=== PATIENT | male | born 1965 | race Caucasian/White ===

== ENCOUNTER 2017-08-09 12:14 | Inpatient (IN) ==
[2017-08-09] MEDS ORDERED: DOCUSATE SODIUM 100 MG CAPSULE PO PRN (14:18)
[2017-08-09] MEDS ORDERED: ACETAMINOPHEN 325 MG TABLET PO PRN ×2 (14:18)
[2017-08-09] MEDS ORDERED: guaiFENesin/DM ER 600-30 MG TABLET PO PRN (14:18)
[2017-08-09] MEDS ORDERED: SODIUM CHLORIDE 0.9% 2,000 ML IV ONE (14:18)
[2017-08-09] MEDS ORDERED: ONDANSETRON 4 MG/2 ML VIAL IV PRN (14:18)
[2017-08-09] MEDS ORDERED: diphenhydrAMINE CAP 25 MG CAPSULE PO PRN (14:18)
[2017-08-09] MEDS ORDERED: ALBUTEROL 2.5 MG/3 ML NEB RESP TX PRN (14:22)
[2017-08-09] MEDS ORDERED: CICLESONIDE PO SCH (14:30)
[2017-08-09 15:47] LABS: Thyroid Stimulating Hormone 0.18 uIU/ml (0.358-3.74); VLDL CHOLESTEROL 53.4 MG/DL
[2017-08-09] MEDS: BENZTROPINE 1 MG TABLET PO SCH ×2 (16:32→20:39)
[2017-08-09] MEDS: ENOXAPARIN 30 MG/0.3 ML SYRINGE SUBCUT SCH (16:33)
[2017-08-09] MEDS: PANTOPRAZOLE 40 MG TABLET PO SCH (16:33)
[2017-08-09] MEDS: LITHIUM ER 300 MG TABLET PO SCH (20:40)
[2017-08-09] MEDS: SIMVASTATIN 10 MG TABLET PO SCH (20:40)
[2017-08-09] MEDS: MIRTAZAPINE 15 MG TABLET PO SCH (20:40)
[2017-08-09] MEDS: SODIUM CHLORIDE 0.9% 1,000 ML IV SCH (21:52)
[2017-08-10 02:07] LABS: Apearance,Urine CLEAR (Clear); Bilirubin,Urine Negative (Negative); Blood, Urine Negative (Negative); Glucose,Urine (UA) Negative (Negative); Ketones,Urine 5 mg/dL (Negative); Nitrite,Urine Negative (Negative); Protein,Urine Negative; RBC,Urine <1 /HPF (0-4); Urine Color Straw (Yellow); Urine Specific Gravity 1.004 (1.001-1.035); Urine Urobilinogen < 2.0 EU/DL (0.2-1.0); WBC,Urine 1 /HPF (0-6)
[2017-08-10] MEDS: SODIUM CHLORIDE 0.9% 1,000 ML IV SCH ×4 (05:58→23:28)
[2017-08-10] MEDS: LEVOTHYROXINE 88 MCG TABLET PO SCH (06:03)
[2017-08-10 06:50] LABS: Basophils % 0.3 % (0.0-0.8); Eosinophils # 0.2 10*3/uL (0.0-0.87); Eosinophils % 3.1 % (0.00-10.9); Hematocrit 29.9 VOL% (42.0-52.0); Hemoglobin 10.1 GM/DL (14.0-18.0); Immature Granulocytes % 0.3 %; Immature Granulocytes Absolute 0.02 #; Lymphocytes # 0.7 10*3/uL (1.4-4.0); Lymphocytes % 11.4 % (21.2-54.2); Mean Corpuscular HGB Conc 33.8 GM/DL (32-36); Mean Corpuscular Hemoglobin 31 PG (27-34); Mean Corpuscular Volume 90.3 FL (87-102); Mean Platelet Volume 9.9 FL (9.6-12.0); Monocytes # 0.8 10*3/uL (0.11-0.8); Monocytes % 13.1 % (1.7-12.7); Neutrophils # 4.2 10*3/uL (1.4-7.4); Neutrophils % 71.8 % (38.7-73.9); Platelet Count 167 T/CUMM (130-400); Red Blood Count 3.31 MC/CUMM (3.8-5.5); Red Cell Distribution Width 13.3 % (9.3-17.3); White Blood Count 5.8 T/CUMM (4-12)
[2017-08-10 07:14] LABS: Calcium 7.3 MG/DL (8.5-10.1); Osmolality,Calculated 282.4 MOS/KG (273-304); Potassium 3.3 MMOL/L (3.5-5.1)
[2017-08-10 07:20] LABS: Band Neutrophils 3 % (0-10); Eosinophils 1 % (0-10); Giant Platelets Few; Hypochromasia Slight; Lymphocytes 16 % (20-55); Ovalocytes Slight; Platelet Estimate Normal; Segmented Neutrophils 67 % (50-85); Total Cells Counted 100
[2017-08-10] MEDS: ASPIRIN EC 81 MG TABLET PO SCH (09:14)
[2017-08-10] MEDS: PANTOPRAZOLE 40 MG TABLET PO SCH (09:15)
[2017-08-10] MEDS: POTASSIUM CHLORIDE 20 MEQ TABLET PO PRN ×3 (09:22→13:34)
[2017-08-10] MEDS: BENZTROPINE 1 MG TABLET PO SCH ×2 (09:30→20:23)
[2017-08-10] MEDS ORDERED: POTASSIUM CHLORIDE 20 MEQ/15 ML UDCUP PO ONE (11:01)
[2017-08-10] MEDS: OMEGA 3 ACID ETHYL ESTERS 1 GM CAPSULE PO SCH ×2 (11:33→20:24)
[2017-08-10] MEDS: ENOXAPARIN 30 MG/0.3 ML SYRINGE SUBCUT SCH (14:53)
[2017-08-10] MEDS: LITHIUM ER 300 MG TABLET PO SCH (20:23)
[2017-08-10] MEDS: SIMVASTATIN 10 MG TABLET PO SCH (20:24)
[2017-08-10] MEDS: MIRTAZAPINE 15 MG TABLET PO SCH (20:24)
[2017-08-11] MEDS: SODIUM CHLORIDE 0.9% 1,000 ML IV SCH ×2 (06:39→07:52)
[2017-08-11] MEDS: LEVOTHYROXINE 88 MCG TABLET PO SCH (06:55)
[2017-08-11] MEDS: BENZTROPINE 1 MG TABLET PO SCH (09:25)
[2017-08-11] MEDS: OMEGA 3 ACID ETHYL ESTERS 1 GM CAPSULE PO SCH (09:25)
[2017-08-11] MEDS: ASPIRIN EC 81 MG TABLET PO SCH (09:26)
[2017-08-11 11:11] VITALS: BP 117/64
== END 2017-08-11 13:58 | DRG 684 ==
LOC: EDBD → EDUNIT# → N.ED 12:14 → N.EDINP 14:18 → N.3W 16:21
PROVIDERS: ADMIT Hospitalist; ATTEND Hospitalist